=== PATIENT | male | born 1985 | race Caucasian/White ===

== ENCOUNTER 2020-02-11 15:24 | Emergency (ER) | payer BC ==
[~2020-02-11] VITALS: Ht 190.5 cm; Wt 97.4 kg
[2020-02-11] MEDS ORDERED: rabies immune globulin/PF 150 unit/ml inj IMVAC STA (15:52)
[2020-02-11] MEDS ORDERED: rabies vaccine (PCEC)/PF 2.5 unit kit IMVAC ONE (15:55)
[2020-02-11 16:00] VITALS: BP 134/82
== END 2020-02-11 16:55 | disposition home or self-care (01) ==
LOC: ER 15:25
DX: S81.032A Puncture wound without foreign body, left knee, initial encounter (principal); Z23 Encounter for immunization; W54.0XXA Bitten by dog, initial encounter; Y93.K1 Activity, walking an animal; Y92.89 Other specified places as the place of occurrence of the external cause; Y99.8 Other external cause status
CPT/HCPCS: 90375; 90471; 90675; 96372; 99284